=== PATIENT | male | born 1965 | race Caucasian/White ===

== ENCOUNTER 2016-11-30 20:07 | Emergency (ER) | payer OTHER ==
[2016-11-30] MEDS ORDERED: metroNIDAZOLE TAB* 250 MG PO ONE ×2 (21:26)
[2016-11-30] MEDS ORDERED: Ciprofloxacin TAB* 500 MG PO ONE ×2 (21:27)
[2016-11-30] MEDS ORDERED: Ondansetron ODT TAB* 4 MG PO ONE (21:31)
--- NOTE | 2016-11-30 21:32 | UC ---
Abdominal Pain Male HPI - HPI Summary HPI Summary: ONSET OF SHARP LLQ ABDOMINAL PAIN YESTERDAY EVENING. NO RADIATION. FEELS BLOATED. HAD CHILLS. NOTED TO HAVE FEVER HERE TODAY. DENIES NAUSEA. HAD NORMAL BM YESTERDAY. NONE TODAY. - History of Current Complaint Chief Complaint: UCGI Stated Complaint: ABDOMINAL PAIN Time Seen by Provider: 11/30/16 20:53 Hx Obtained From: Patient, Family/Package Delivery Driver - Onset/Duration: Sudden Onset, Lasting Days - 1 DAY, Still Present Timing: Constant Severity Initially: Moderate Severity Currently: Moderate Pain Intensity: 7 Pain Scale Used: 0-10 Numeric Location: Discrete At: LLQ Radiates: No Character: Sharp Aggravating Factor(s):: Movement Alleviating Factor(s): Nothing Associated Signs And Symptoms: Negative: Fever, Back Pain, Constipation, Blood in Stool, Urinary Symptoms, Decreased Appetite, Nausea, Vomiting, Diarrhea - Allergies/Home Medications Allergies/Adverse Reactions: Allergies Allergy/AdvReac Type Severity Reaction Status Date / Time No Known Allergies Allergy Verified 11/30/16 21:36 Home Medications: Home Medications Latanoprost 0.005% OPTH (NF) [Xalatan 0.005% OPTH*] 11/30/16 [History] Lisinopril TAB* [Prinivil TAB 5 MG*] 11/30/16 [History] Terazosin CAP* [Hytrin CAP*] 11/30/16 [History Confirmed 11/30/16] amLODIPine TAB* [Norvasc 5 mg TAB*] 11/30/16 [History] PMH/Surg Hx/FS Hx/Imm Hx - Additional Past Medical History Additional PMH: GLAUCOMA Endocrine History Of: Denies: Diabetes Cardiovascular History Of: Reports: Hypertension Denies: Pacemaker/ICD GI/ History Of: Denies: Renal Disease - Surgical History Surgical History: Yes Surgery Procedure, Year, and Place: [facility]NEE - [place]. PRK - (LIKE LASIX SURG) EYES - NO IMPLANTS - Family History Known Family History: Positive: Hypertension - Social History Alcohol Use: None Substance Use Type: None Smoking Status (MU): Never Smoked Tobacco Review of Systems Constitutional: Fever, Chills Respiratory: Negative Cardiovascular: Negative Gastrointestinal: Abdominal Pain Genitourinary: Negative All Other Systems Reviewed And Are Negative: Yes Physical Exam Triage Information Reviewed: Yes Appearance: Well-Appearing, Well-Nourished, Pain Distress - MODERATE Vital Signs: Initial Vital Signs Temp 101.2 F 11/30/16 20:29 Pulse 97 11/30/16 20:29 Resp 18 11/30/16 20:29 BP 153/75 11/30/16 20:29 Pulse Ox 95 11/30/16 20:29 Vital Signs Reviewed: Yes Eyes: Positive: Conjunctiva Clear ENT: Positive: Hearing grossly normal Neck: Positive: Supple, Nontender, No Lymphadenopathy Respiratory Exam: Normal Cardiovascular Exam: Normal Abdomen Description: Positive: Soft, Distended - MILDLY, Other: - TTP LLQ. NO REBOUND, NO RIGIDITY. Negative: CVA Tenderness (R), CVA Tenderness (L), Guarding Bowel Sounds: Positive: Present Musculoskeletal: Positive: No Edema Neurological: Positive: Alert Psychological: Positive: Age Appropriate Behavior Skin: Negative: rashes Abd Pain Male Course/Dx - Course Course Of Treatment: DISCUSSED WITH PT GOING TO ER SO STAT LABS AND IMAGING CAN BE DONE. PT WISHES TO TREAT OUTPT WITH THE UNDERSTANDING THAT DIAGNOSIS IS NOT CONFIRMED. HE WILL FOLLOW-UP WITH HIS PCP IN SEVERAL DAYS AND GO TO THE ER WITHOUT FAIL IF HE IS NOT IMPROVING OVER THE NEXT 24-48 HRS. - Differential Dx/Clinical Impression Differential Diagnosis/HQI/PQRI: Bowel Obstruction, Constipation, Ischemic Bowel Provider Diagnoses: DIVERTICULITIS - CLINICAL DIAGNOSIS Discharge - Discharge Plan Condition: Stable Disposition: HOME Prescriptions: Ciprofloxacin TAB* [Cipro 500 MG TAB*] 500 mg PO BID #18 tab Metronidazole [Flagyl 500 MG TAB] 500 mg PO Q8H #28 tab Ondansetron ODT TAB* [Zofran Odt TAB*] 4 mg PO Q6H PRN #20 tab.odt PRN Reason: Nausea/Vomiting Patient Education Materials: Diverticulitis (ED) Additional Instructions: CLINICALLY YOU HAVE DIVERTICULITIS. WE WILL TREAT YOU SUCH WITH CIPRO AND METRONIDAZOLE. UNDERSTAND THAT IDEALLY WE WOULD HAVE DONE A CT SCAN WITH CONTRAST TO DEFINITIVELY DIAGNOSE YOUR CONDITION BUT WE DO NOT HAVE THAT CAPABILITY IN THIS CLINIC. IF YOUR SYMPTOMS DO NOT IMPROVE OVER THE NEXT 24-48 HOURS ON ANTIBIOTICS GO TO THE ER WITHOUT FAIL FOR FURTHER EVALUATION. CBC DRAWN TODAY. FOLLOW-UP WITH YOUR PCP AT THE [facility] IN 3-5 DAYS FOR RE-CHECK. YOUR BP IS LIKELY ELEVATED DUE TO YOUR ACUTE CONDITION.
[2016-11-30 21:59] VITALS: BP 134/85
[2016-12-01 10:18] LABS: Hematocrit 44 % (42-52); Hemoglobin 14.8 g/dl (14.0-18.0); Mean Corpuscular HGB Conc 34 g/dl (31-36); Mean Corpuscular Hemoglobin 30 pg (27-31); Mean Corpuscular Volume 87 fL (80-94); Mean Platelet Volume 10 um3 (7.4-10.4); Red Blood Count 5.03 10^6/ul (4.0-5.4); Red Cell Distribution Width 14 % (10.5-15); White Blood Count 16.3 10^3/ul (3.5-10.8)
[2016-12-01 10:21] LABS: Add Diff/Slide Review? Slide Review Added; Comments Flag Yes
== END 2016-11-30 22:00 | disposition home or self-care (01) ==
LOC: UCEAST 20:07
DX: K57.92 Diverticulitis of intestine, part unspecified, without perforation or abscess without bleeding (principal); I10 Essential (primary) hypertension
CPT/HCPCS: 36415; 85025; 99213; A9270-GY; G0463

== ENCOUNTER 2016-12-01 20:40 | Emergency (ER) | payer OTHER ==
[2016-12-01 22:42] LABS: Hematocrit 39 % (42-52); Hemoglobin 13.3 g/dl (14.0-18.0); Mean Corpuscular HGB Conc 34 g/dl (31-36); Mean Corpuscular Hemoglobin 29 pg (27-31); Mean Corpuscular Volume 87 fL (80-94); Mean Platelet Volume 10 um3 (7.4-10.4); Red Blood Count 4.53 10^6/ul (4.0-5.4); Red Cell Distribution Width 13 % (10.5-15); White Blood Count 11.8 10^3/ul (3.5-10.8)
[2016-12-01 22:49] LABS: Urine Bacteria Absent (Absent); Urine Bilirubin Negative (Negative); Urine Glucose Negative (Negative); Urine Nitrite Negative (Negative)
--- NOTE | 2016-12-01 22:51 | ED ---
Candi Pantoja Claudia, scribed for Joe Mark MD on 12/01/16 at 2124 . Abdominal Pain/Male - HPI Summary HPI Summary: 50 year old male presents to the ED with LLQ pain. Pt went to [facility] last night with LLQ, fever and chills. Pt notes gradual onset of Sx a few days ago. Pt notes pain last night to be 9/`0. Pt states that at [facility] they suspected diverticulitis due to elevated WBC and fever but were unable to Dx due to lack of CT available. Pt comes to ED tonight to determine if it is in fact diverticulitis with the use of CT abd/pelvis. He notes that the pain is now 3/ 10 and is much less than it was yesterday but he does not that the pain was fairly constant today. He also notes chills today with possible fever. - History of Current Complaint Chief Complaint: EDAbdPain Stated Complaint: SENT FROM [facility]NEEDS [facility]SCAN Time Seen by Provider: 12/01/16 21:14 Hx Obtained From: Patient Onset/Duration: Gradual Onset, Lasting Days, Still Present Timing: Constant Pain Intensity: 2 Pain Scale Used: 0-10 Numeric Location: Discrete At: LLQ Radiates: No Character: Sharp Aggravating Factor(s): Nothing Alleviating Factor(s): Nothing Associated Signs And Symptoms: Positive: Fever. Negative: Constipation, Blood in Stool, Urinary Symptoms, Vomiting, Diarrhea - Allergies/Home Medications Allergies/Adverse Reactions: Allergies Allergy/AdvReac Type Severity Reaction Status Date / Time No Known Allergies Allergy Verified 11/30/16 21:36 PMH/Surg Hx/FS Hx/Imm Hx Previously Healthy: Yes Endocrine/Hematology History: Denies: Hx Diabetes Cardiovascular History: Reports: Hx Hypertension Denies: Hx Pacemaker/ICD, Other Cardiovascular Problems/Disorders Respiratory History: Denies: Other Respiratory Problems/Disorders History: Denies: Hx Renal Disease Sensory History: Denies: Hx Hearing Aid Psychiatric History: Denies: Hx Panic Disorder - Surgical History Surgery Procedure, Year, and Place: Lt KNEE - [place]. PRK - (LIKE LASIX SURG) EYES - NO IMPLANTS Infectious Disease History: No Infectious Disease History: Denies: Traveled Outside the [place] in Last 30 Days - Family History Known Family History: Positive: Hypertension - Social History Occupation: Employed Full-time Lives: With Family Alcohol Use: None Substance Use Type: Reports: None Smoking Status (MU): Never Smoked Tobacco Review of Systems Positive: Chills Eyes: Negative ENT: Negative Cardiovascular: Negative Respiratory: Negative Positive: Abdominal Pain Genitourinary: Negative Negative: dysuria, frequency Musculoskeletal: Negative Skin: Negative Neurological: Negative Psychological: Normal All Other Systems Reviewed And Are Negative: Yes Physical Exam Triage Information Reviewed: Yes Vital Signs On Initial Exam: Initial Vitals Temp Pulse Resp BP Pulse Ox 98.8 F 90 16 133/76 96 12/01/16 20:40 12/01/16 20:40 12/01/16 20:40 12/01/16 20:40 12/01/16 20:40 Vital Signs Reviewed: Yes Appearance: Positive: Well-Appearing, No Pain Distress Skin: Positive: Warm, Skin Color Reflects Adequate Perfusion, Dry Head/Face: Positive: Normal Head/Face Inspection Eyes: Positive: Normal ENT: Positive: Normal ENT inspection Neck: Positive: Supple, Nontender Respiratory/Lung Sounds: Positive: Clear to Auscultation, Breath Sounds Present Cardiovascular: Positive: RRR Abdomen Description: Positive: Soft. Negative: Nontender - Tender at LLQ Bowel Sounds: Positive: Present Musculoskeletal: Positive: Normal Neurological: Positive: Normal Psychiatric: Positive: Affect/Mood Appropriate Diagnostics - Vital Signs Vital Signs Temp Pulse Resp BP Pulse Ox 12/01/16 20:40 98.8 F 90 16 133/76 96 - Laboratory Lab Results: Lab Results 12/01/16 Range/Units 22:20 WBC 11.8 H (3.5-10.8) 10^3/ul RBC 4.53 (4.0-5.4) 10^6/ul Hgb 13.3 L (14.0-18.0) g/dl Hct 39 L (42-52) % MCV 87 (80-94) fL MCH 29 (27-31) pg MCHC 34 (31-36) g/dl RDW 13 (10.5-15) % Plt Count 219 (150-450) 10^3/ul MPV 10 (7.4-10.4) um3 Neut % (Auto) 68.4 (38-83) % Lymph % (Auto) 20.0 L (25-47) % [place] % (Auto) 10.2 H (1-9) % Eos % (Auto) 0.7 (0-6) % Baso % (Auto) 0.7 (0-2) % Absolute Neuts (auto) 8.1 H (1.5-7.7) 10^3/ul Absolute Lymphs (auto) 2.4 (1.0-4.8) 10^3/ul Absolute Monos (auto) 1.2 H (0-0.8) 10^3/ul Absolute Eos (auto) 0.1 (0-0.6) 10^3/ul Absolute Basos (auto) 0.1 (0-0.2) 10^3/ul Absolute Nucleated RBC 0 10^3/ul Nucleated RBC % 0 Result Diagrams: 12/01/16 22:20 Lab Statement: Any lab studies that have been ordered have been reviewed, and results considered in the medical decision making process. Abdominal Pain Fem Course/Dx - Course Course Of Treatment: Although right at this minute he is feeling a bit better, Mr. Gates had a fever last night and chills today therefore a CT scan was ordered to confirm the diagnosis of diverticulitis and to R/O abscess. - Diagnoses Provider Diagnoses: Diverticulitis - Provider Notifications Discussed Care Of Patient With: Dr. Pino at change of shift. Discharge - Discharge Plan Condition: Stable Disposition: HOME Discharge Disposition Comment: Sign-out to Dr. Pino at 2300- waiting for results of CT abd/pelvis Referrals: Twan Hendrix MD [Primary Care Provider] - 3 Days The documentation as recorded by the Candi pradhan Claudia accurately reflects the service I personally performed and the decisions made by me, Joe Mark MD.
[2016-12-01 22:54] LABS: BUN/Creatinine Ratio 13.3 (8-20); C Reactive Protein 122.68 mg/L (< 5.00); Calcium 8.8 mg/dL (8.6-10.3); EGFR African American 87.6 (>60); EGFR Non-African American 68.1 (>60); Globulin 3.1 g/dL (2-4); Potassium 3.8 mmol/L (3.5-5.0); Total Bilirubin 0.9 mg/dL (0.2-1.0); Total Protein 7.1 g/dL (6.4-8.9)
[2016-12-01] MEDS ORDERED: Iohexol 300* (CONTRAST) 10 ML SDV IV ONE (23:04)
[2016-12-02 00:25] VITALS: BP 136/78
--- NOTE | 2016-12-02 07:42 | RAD ---
INDICATION: Left lower quadrant abdominal pain. COMPARISON: There are no prior studies available for comparison. TECHNIQUE: A CT scan of the abdomen and pelvis was performed with intravenous and oral contrast following intravenous injection of 140 ml of Omnipaque 300 nonionic contrast. Contiguous axial sections were obtained from the lung bases through the symphysis pubis. Images were reconstructed in the coronal and sagittal planes. FINDINGS: The lung bases are clear. No pleural effusion is present. The liver and spleen are normal in size without significant focal abnormality. The liver is decreased in attenuation consistent with fatty infiltration. There appear to be several small accessory spleens present. No calcified gallstones are seen. The pancreas appears to be within normal limits. The kidneys and adrenal glands are normal in size. No hydronephrosis is seen. No significant focal renal abnormality is seen. The aorta is normal in caliber and demonstrates homogeneous contrast opacification. No significant enlarged retroperitoneal lymph nodes are seen. The stomach, small and large bowel appear nondistended. The appendix is within normal limits. There is thickening of the wall of the proximal sigmoid colon. There appears to be an inflamed diverticulum in that region and stranding in the surrounding mesenteric fat most consistent with diverticulitis. No abscess is seen. No free intraperitoneal air or fluid is seen. There is mild grade 1 retrolisthesis of L5 relative to S1. No fracture is seen. No other focal osseous abnormalities are noted. IMPRESSION: 1. FINDINGS MOST CONSISTENT WITH DIVERTICULITIS, NO EVIDENCE FOR ABSCESS. 2. HEPATIC STEATOSIS.
== END 2016-12-02 00:23 | disposition home or self-care (01) ==
LOC: ED 20:40
DX: K57.92 Diverticulitis of intestine, part unspecified, without perforation or abscess without bleeding (principal); R10.32 Left lower quadrant pain; R50.9 Fever, unspecified
CPT/HCPCS: 36415; 74177; 80053; 81003; 81015; 83690; 85025; 86140; 87086; 99282; Q9967

== ENCOUNTER 2017-02-11 11:44 | Emergency (ER) | payer OTHER ==
[2017-02-11 11:52] VITALS: BP 125/79
--- NOTE | 2017-02-11 13:01 | UC ---
Abdominal Pain Male HPI - History of Current Complaint Chief Complaint: UCAbdominalPain Stated Complaint: LT ABD/FLANK PAIN/DIVERTICULITIS? Hx Obtained From: Patient Onset/Duration: Gradual Onset - over past 2 days he has experienced escalating LLQ abd pain Timing: Constant Severity Initially: Mild Severity Currently: Moderate Location: Discrete At: LLQ Radiates: No Character: Cramping, Sharp Aggravating Factor(s):: Movement Alleviating Factor(s): Nothing Associated Signs And Symptoms: Negative: Fever, Chest Pain, Blood in Stool, Vomiting, Diarrhea Similar Episode/Dx As:: diverticulitis - Allergies/Home Medications Allergies/Adverse Reactions: Allergies Allergy/AdvReac Type Severity Reaction Status Date / Time No Known Allergies Allergy Verified 11/30/16 21:36 Home Medications: Home Medications Pravastatin (NF) [Pravachol (NF)] 10 mg PO 1700 02/11/17 [History Confirmed ] PMH/Surg Hx/FS Hx/Imm Hx Previously Healthy: Yes Endocrine History: Dyslipidemia Cardiovascular History: Hypertension GI/ History: Diverticulitis - Surgical History Surgical History: Yes Surgery Procedure, Year, and Place: [facility]EE - [place]. PRK - (LIKE LASIX SURG) EYES - NO IMPLANTS - Family History Known Family History: Positive: Hypertension - Social History Occupation: Employed Full-time Lives: With Family Alcohol Use: Occasionally Substance Use Type: None Smoking Status (MU): Never Smoked Tobacco Review of Systems Constitutional: Negative Respiratory: Negative Cardiovascular: Negative Gastrointestinal: Abdominal Pain Genitourinary: Negative Musculoskeletal: Negative Neurological: Negative Psychological: Negative All Other Systems Reviewed And Are Negative: Yes Physical Exam Triage Information Reviewed: Yes Appearance: Well-Appearing, No Pain Distress, Well-Nourished Vital Signs: Initial Vital Signs Temp 98.0 F 02/11/17 11:49 Pulse 78 02/11/17 11:49 Resp 18 02/11/17 11:49 BP 125/79 02/11/17 11:49 Pulse Ox 99 02/11/17 11:49 Vital Signs Reviewed: Yes Respiratory Exam: Normal Cardiovascular Exam: Normal Abdomen Description: Positive: Other: - pain with deep palpation LLQ. Negative : Distended, Guarding Bowel Sounds: Positive: Present Psychological Exam: Normal Skin Exam: Normal Abd Pain Male Course/Dx - Differential Dx/Clinical Impression Differential Diagnosis/HQI/PQRI: Bowel Obstruction, Constipation, Diverticulitis , Ureteral Stone Provider Diagnoses: diverticulitis Discharge - Discharge Plan Condition: Stable Disposition: HOME Prescriptions: Ciprofloxacin HCl [Cipro 500 MG TAB] 500 mg PO BID #20 tab Metronidazole [Flagyl 500 MG TAB] 500 mg PO TID #30 tab Patient Education Materials: Diverticulitis (ED) Referrals: Twan Hendrix MD [Primary Care Provider] - 3 Days (for recheck) Additional Instructions: drink plenty of fluids increase fiber in diet report to ER if your symptoms worsen at any time
== END 2017-02-11 13:15 | disposition home or self-care (01) ==
LOC: UCEAST 11:44
DX: K57.92 Diverticulitis of intestine, part unspecified, without perforation or abscess without bleeding (principal)
CPT/HCPCS: 99212; G0463

== ENCOUNTER 2019-12-16 12:45 | Inpatient (IN) | payer OTHER ==
[2019-12-16] MEDS ORDERED: NS 0.9% 1000 ML** 1,000 ML IV ONE (13:23)
--- NOTE | 2019-12-16 13:24 | ED ---
Abdominal Pain/Male - HPI Summary HPI Summary: Pt. is a 54 y.o male who presents to the ER for ongoing abdominal pain x 8 days. Pt. notes a hx of recurrent diverticulitis. Pt. states he was started on cipro and flagyl 8 days ago for diverticulitis. Pt. states his LLQ abd. pain has been increasing. He noticed today nausea and increased lower abd. cramping. Also notes low grade. Denies chest pain, SOB, cough, urinary sxs. Past hx of HTN , HLD. Sxs are moderate in severity. No current modifying factors. - History of Current Complaint Chief Complaint: EDAbdPain Stated Complaint: POSS DIVERTICULITIS PER PT Time Seen by Provider: 12/16/19 12:58 Hx Obtained From: Patient Pain Intensity: 2 - Allergies/Home Medications Allergies/Adverse Reactions: Allergies Allergy/AdvReac Type Severity Reaction Status Date / Time No Known Allergies Allergy Verified 12/16/19 12:46 Home Medications: Home Medications Latanoprost 0.005% OPTH (NF) [Xalatan 0.005% OPTH*] 1 drop BOTH EYES DAILY 11/30 [History Confirmed 12/16/19] Lisinopril TAB* [Prinivil TAB 5 MG*] 10 mg PO DAILY 11/30/16 [History Confirmed 12/16/19] Terazosin CAP* [Hytrin CAP*] 10 mg PO BEDTIME 11/30/16 [History Confirmed ] Ciprofloxacin HCl [Cipro 500 MG TAB] 500 mg PO BID #20 tab 02/11/17 [Rx Confirmed 12/16/19] Pravastatin (NF) [Pravachol (NF)] 10 mg PO BEDTIME 02/11/17 [History Confirmed 12/16/19] Acetaminophen TAB* [Tylenol TAB*] 325 mg PO Q4H PRN 12/16/19 [History Confirmed 12/16/19] Aspirin EC TAB* [Ecotrin EC Low Dose 81 MG*] 81 mg PO DAILY 12/16/19 [History Confirmed 12/16/19] metroNIDAZOLE [Flagyl 500 MG TAB] 500 mg PO QID 12/16/19 [History Confirmed ] PMH/Surg Hx/FS Hx/Imm Hx Previously Healthy: Yes Endocrine/Hematology History: Denies: Hx Diabetes Cardiovascular History: Reports: Hx Hypertension Denies: Hx Pacemaker/ICD, Other Cardiovascular Problems/Disorders Respiratory History: Denies: Other Respiratory Problems/Disorders History: Denies: Hx Dialysis, Hx Renal Disease Sensory History: Denies: Hx Hearing Aid Psychiatric History: Denies: Hx Panic Disorder - Surgical History Surgery Procedure, Year, and Place: [facility]NEE - [place]. PRK - (LIKE LASIX SURG) EYES - NO IMPLANTS Infectious Disease History: No Infectious Disease History: Denies: Traveled Outside the [place] in Last 30 Days - Family History Known Family History: Positive: Hypertension, Non-Contributory - Social History Occupation: Employed Full-time Lives: With Family Alcohol Use: Occasionally Substance Use Type: Reports: None Smoking Status (MU): Never Smoked Tobacco Review of Systems Positive: Fever, Chills Cardiovascular: Negative Negative: Palpitations, Chest Pain Respiratory: Negative Negative: Shortness Of Breath, Cough Positive: Abdominal Pain, Nausea Genitourinary: Negative All Other Systems Reviewed And Are Negative: Yes Physical Exam Triage Information Reviewed: Yes Vital Signs On Initial Exam: Initial Vitals Temp Pulse Resp BP Pulse Ox 100 F 85 16 146/104 96 12/16/19 12:46 12/16/19 12:46 12/16/19 12:46 12/16/19 12:46 12/16/19 12:46 Vital Signs Reviewed: Yes Appearance: Positive: Well-Appearing - Pt. lying in bed in NAD. Skin: Positive: Warm, Dry Procedures - Sedation Patient Received Moderate/Deep Sedation with Procedure: No Diagnostics - Vital Signs Vital Signs Temp Pulse Resp BP Pulse Ox 12/16/19 12:46 100 F 85 16 146/104 96 - Laboratory Result Diagrams: 12/17/19 05:26 12/17/19 05:26 Lab Statement: Any lab studies that have been ordered have been reviewed, and results considered in the medical decision making process. Abdominal Pain Male Course/Dx - Course Course Of Treatment: Pt. with increasing LLQ pain after 8 days of cipro and flagyl. Low grade fever. Declines pain medications. Given IV fluids. Labs show mild increase in WBC and CRP. CT per radiology: IMPRESSION: 1. UNCOMPLICATED DIVERTICULITIS OF THE DISTAL DESCENDING COLON. RECOMMEND CORRELATION. Case discussed with Dr. Shah who recommends admission for failed outpt. treatment. Zosyn given. Case discussed with Dr. Kramer, hospitalist, who will see pt. for admission. - Diagnoses Provider Diagnoses: Diverticulitis, Failure of outpatient treatment - Critical Care Time Critical Care Statement: Critical care time is provided exclusive of any time spent performing procedures. Discharge ED - Sign-Out/Discharge Documenting (check all that apply): Patient Departure - Discharge Plan Condition: Stable Disposition: ADMITTED TO [facility] - Billing Disposition and Condition Condition: STABLE Disposition: Admitted to [facility] - Attestation Statements Provider Attestation: I have seen the patient with the LEANNE and agree with the plan and documentation below except as noted: briefly 54-year-old male presenting with diverticulitis, failing outpatient therapy. Admit for IV antibiotics Hyacinth Shah MD
[2019-12-16 13:49] LABS: ABS Eosinophils 0.1 10^3/ul (0-0.6); ABS Lymphocytes 1.6 10^3/ul (1.0-4.8); ABS Monocytes 1.1 10^3/ul (0-0.8); ABS Neutrophils 8.1 10^3/ul (1.5-7.7); Hematocrit 42 % (42-52); Hemoglobin 14.8 g/dL (14.0-18.0); Lymphocyte % 14.7 %; Mean Corpuscular HGB Conc 35 g/dL (31-36); Mean Corpuscular Hemoglobin 31 pg (27-31); Mean Corpuscular Volume 89 fL (80-94); Mean Platelet Volume 9.6 fL (7.4-10.4); Platelet Count 245 10^3/uL (150-450); Red Blood Count 4.78 10^6 /uL (4.18-5.48); Red Cell Distribution Width 13 % (10-15)
[2019-12-16 14:05] LABS: Albumin 3.9 g/dL (3.2-5.2); Albumin/Globulin Ratio 1.2 (1-3); BUN/Creatinine Ratio 15.5 (8-20); C Reactive Protein 17.43 mg/L (<8.01); Calcium 9.1 mg/dL (8.6-10.3); EGFR African American 90.4 (>60); EGFR Non-African American 74.7 (>60); Globulin 3.2 g/dL (2-4); Total Bilirubin 0.5 mg/dL (0.2-1.0); Total Protein 7.1 g/dL (6.4-8.9)
[2019-12-16] MEDS ORDERED: Iohexol 300* (CONTRAST) 10 ML SDV IV ONE (14:29)
[2019-12-16] MEDS ORDERED: Acetaminophen TAB* 325 MG PO ONE (14:39)
[2019-12-16] MEDS: Piperacillin/Tazobac ADVAN(*) 3.375 GM in NS 0.9% 100 ML* 100 ML IVPB ONE (17:10)
[2019-12-16] MEDS ORDERED: Morphine INJ* 2 MG/ML 1 ML SYRINGE (TWO MG - NEW SYRINGE VERSION) IV PRN (18:07)
[2019-12-16] MEDS ORDERED: Zosyn per Pharmacy* NOTE FOLLOW UP SCH (19:00)
[2019-12-16 19:02] LABS: Urine Appearance Clear; Urine Bilirubin Negative (Negative); Urine Blood Negative (Negative); Urine Color Straw; Urine Glucose Negative (Negative); Urine Ketones Negative (Negative); Urine Nitrite Negative (Negative); Urine Protein Negative (Negative); Urine Specific Gravity 1.032 (1.010-1.030); Urine Urobilinogen Negative (Negative)
--- NOTE | 2019-12-16 19:48 | HP ---
CC: Dr. Hendrix* HISTORY AND PHYSICAL: DATE OF ADMISSION: 12/16/19 PROVIDER: Eduardo Gregory NP PRIMARY CARE PROVIDER: Dr. Hendrix. ATTENDING PHYSICIAN WHILE IN THE HOSPITAL: Dr. Rivera* (dictated by Eduardo Gregory NP). CHIEF COMPLAINT: Abdominal pain. HISTORY OF PRESENT ILLNESS: Mr. Gates is a 54-year-old male with a past medical history significant for diverticulosis, hypertension, hyperlipidemia, glaucoma, fatty liver disease, who presented to the emergency room with complaints of abdominal pain. The patient reports that approximately 9 days ago , he started with abdominal pain, diarrhea. He called his primary care provider on 12/09/19 and he was started on Cipro and Flagyl. The patient reports that he has taken 8 days of Cipro and Flagyl. He resumed a bland diet a few days ago on afternoon. His stools had improved. He was feeling better. Monday night, he developed nausea with associated lower abdominal pain , feeling like gas, but nothing would expel. The pain persisted. He also reports that he had fevers and chills. Due to these findings, he called his PCP today who recommend he come to the emergency room for further evaluation and a CAT scan of his abdomen. The patient denies any edema or chest pain. No cough, hemoptysis, or shortness of breath. He does report some nausea. He does report intermittent diarrhea and constipation. He does report left lower quadrant abdominal pain. He denies any gross hematuria, dysuria, focal weakness , sensory loss, visual complaints, dysphagia, arthralgias, myalgias, rashes, lesions, open sores, psychosis, or anxiety. While in the emergency room, he had routine lab work drawn. He was found to have a white count of 11.0. His CT of the abdomen and pelvis showed uncomplicated diverticulitis. Due to these findings, Hospital Medicine was asked to see and evaluate him for admission. PAST MEDICAL HISTORY: Significant for diverticulosis with episodic diverticulitis, hypertension, hyperlipidemia, glaucoma, fatty liver disease. PAST SURGICAL HISTORY: Right patella surgery, benign cyst removed from his back. HOME MEDICATIONS: Include: 1. Lisinopril 10 mg p.o. daily. 2. Latanoprost 0.005% one drop to both eyes daily. 3. Pravastatin 10 mg p.o. at bedtime. 4. Aspirin 81 mg p.o. daily. 5. Terazosin 10 mg at bedtime. 6. Lisinopril 10 mg p.o. daily. 7. He is also taking Flagyl 500 mg p.o. 4 times a day. 8. Cipro 500 mg p.o. b.i.d. ALLERGIES: No known drug allergies. FAMILY HISTORY: Paternal grandfather from a heart attack in the 60s. Maternal grandfather with a stroke. Sister with diabetes and another sister had cancer. Mother from gallbladder cancer. SOCIAL HISTORY: No tobacco use. Reports rare alcohol use. No illicit drug use. He is . He lives with his . Surrogate decision maker in the event he is unable to make his own decisions is his . He is a full code. REVIEW OF SYSTEMS: A 14-point review of systems was completed. All pertinent positives were mentioned in the HPI. PHYSICAL EXAMINATION GENERAL: At this time, Mr. Gates is a 54-year-old male. He is alert and oriented, resting on the stretcher in the emergency room. He is in no acute distress. VITAL SIGNS: Blood pressure 146/104, heart rate 85, respirations 16, O2 saturation 96%, temperature was 100.0. HEENT: Head is atraumatic, normocephalic. Eyes: EOMs are intact. Sclerae anicteric and not pale. Oral mucosa is moist. NECK: Supple. LUNGS: Clear to auscultation bilaterally. No wheezes, rales, or rhonchi. CARDIAC: S1, S2. Regular rate and rhythm. No murmurs, rubs, or gallops. ABDOMEN: Obese, soft. He does have mild tenderness noted to his left lower quadrant. Bowel sounds are active x4. EXTREMITIES: He is able to move all 4 extremities. There is no clubbing or cyanosis. NEUROLOGIC: He is awake, alert, oriented x3. Speech is clear. Thought process is intact. SKIN: Intact. DIAGNOSTIC STUDIES/LAB DATA: WBCs are 11.0, RBCs 4.78, hemoglobin 14.8, hematocrit is 42, platelet count is 245. Sodium 135, potassium 4.0, chloride 103, carbon dioxide is 25, anion gap is 7, BUN was 16, creatinine 1.03, glucose was 92, lactic acid 1.1, calcium 9.1. Total bilirubin 0.50, ASTs were 24, ALTs were 25, alkaline phosphatase was 44. C-reactive protein was 17.43, lipase was 16. Urine is currently pending. The patient had a CT of the abdomen and pelvis, radiologist's impression: Uncomplicated diverticulitis of the distal descending colon. ASSESSMENT AND PLAN: Mr. Gates is a 54-year-old male with a past medical history significant for diverticulosis, history of diverticulitis, hypertension , hyperlipidemia, glaucoma, fatty liver, who presented to the emergency room with a complaints of abdominal pain and diverticulitis with failed outpatient oral antibiotics. He will be admitted for: 1. Acute diverticulitis. The patient started with abdominal pain approximately 8 days ago. He was started on Cipro and Flagyl. He has taken 8 days course of antibiotics. Continues with fever and left lower quadrant abdominal pain. At this time, the patient appears to have failed outpatient oral antibiotics. He will admitted to inpatient and treated with Zosyn. I will place him on a clear liquid diet. He will have IV fluids and pain medication as needed. 2. Hypertension. He can continue on his lisinopril with holding for systolic blood pressure less than 110. Continue his pravastatin 10 mg p.o. daily. 3. Hyperlipidemia. He will continue pravastatin. 4. Glaucoma. He will continue latanoprost. 5. FEN: Clear liquid diet. 6. Code status: He is a full code. 7. DVT prophylaxis: I will place him on Lovenox subcu. TIME SPENT: Time spent on this admission was 60 minutes, greater than half that time was spent at the bedside reviewing events leading thus far to this hospitalization, performing physical exam, and reviewing my plan of care. I have discussed this with my attending, Dr. Rivera; she is in agreement with my plan. EDUARDO GREGORY, ROCIO [id number]/[facility] #: [id number] MICHAEL
[2019-12-16] MEDS ORDERED: Enoxaparin(*) 40 MG/0.4 ML SYR SUBCUT SCH (20:00)
[2019-12-16] MEDS: NS 0.9% 1000 ML** 1,000 ML IV SCH (21:03)
[2019-12-16] MEDS: ZOSYN 3.375 GM Q8H per EXTENDED INFUSION IVPB SCH ×2 (21:09)
[2019-12-17] MEDS ORDERED: PROCHLORPERAZINE INJ 5 MG/ML 2 ML VIAL IV PRN (01:32)
[2019-12-17] MEDS ORDERED: Ketorolac INJ* 30 MG/ML 1 ML VIAL IV PUSH PRN (01:33)
[2019-12-17] MEDS: ZOSYN 3.375 GM Q8H per EXTENDED INFUSION IVPB SCH ×4 (04:41→12:48)
[2019-12-17] MEDS: NS 0.9% 1000 ML** 1,000 ML IV SCH ×2 (04:44→12:48)
[2019-12-17 05:55] LABS: ABS Eosinophils 0.1 10^3/ul (0-0.6); ABS Lymphocytes 1.8 10^3/ul (1.0-4.8); ABS Monocytes 0.9 10^3/ul (0-0.8); ABS Neutrophils 5.2 10^3/ul (1.5-7.7); Eosinophil % 1.8 %; Hematocrit 40 % (42-52); Hemoglobin 13.7 g/dL (14.0-18.0); Lymphocyte % 22.1 %; Mean Corpuscular HGB Conc 35 g/dL (31-36); Mean Corpuscular Hemoglobin 31 pg (27-31); Mean Corpuscular Volume 89 fL (80-94); Mean Platelet Volume 9.4 fL (7.4-10.4); Platelet Count 232 10^3/uL (150-450); Red Blood Count 4.43 10^6 /uL (4.18-5.48); Red Cell Distribution Width 13 % (10-15); White Blood Count 8.1 10^3/uL (3.5-10.8)
[2019-12-17 06:11] LABS: BUN/Creatinine Ratio 10.3 (8-20); Calcium 8.7 mg/dL (8.6-10.3); EGFR African American 86.5 (>60); EGFR Non-African American 71.5 (>60); Potassium 3.8 mmol/L (3.5-5.0)
[2019-12-17] MEDS ORDERED: LORazepam TAB(*) 0.5 MG PO PRN (06:19)
[2019-12-17 15:52] VITALS: BP 145/81
--- NOTE | 2019-12-17 20:10 | DS ---
CC: Dr. Hendrix* DISCHARGE SUMMARY: DATE OF ADMISSION: 12/16/19 DATE OF DISCHARGE: 12/17/19 PROVIDER: Melia Bravo NP. PRIMARY CARE PROVIDER: Dr. Hendrix. ATTENDING WHILE IN THE HOSPITAL: Dr. Ring* (dictated by Melia Bravo NP). PRIMARY DIAGNOSIS: Diverticulitis STUDIES WHILE IN THE HOSPITAL: CT ABD/PELVIS W/CONTRAST: Uncomplicated diverticulitis of the distal descending colon. Recommend correlation with colonoscopy after symptomatic resolution. Hepatic steatosis HISTORY OF PRESENT ILLNESS AND HOSPITAL COURSE: Mr. Gates is a 54-year-old male with past medical history significant for diverticulosis, hypertension, hyperlipidemia, glaucoma, fatty liver disease who presented to the emergency department with complaints of abdominal pain which started 9 days ago. The patient had been on conservative treatment at home with oral antibiotics, Cipro and Flagyl. Upon arrival to the hospital the patient was on the 8th day of treatment with oral antibiotics with good relief initially. However on the fourth day of treatment he reports the pain returned with increasing severity daily. Mr. Gates was instructed to go to the hospital by his PCP. While in the ER, the patient's CT scan showed an uncomplicated diverticulitis of the distal descending colon and they recommended correlation with colonoscopy after symptomatic resolution and hepatic steatosis. The patient was admitted to the floor, received total of 4 doses of Zosyn 3.375 mg. After approx. 24 hours Mr. Gates reports that he is comfortable and not feeling any pain whatsoever, states he is ready for discharge home. The patient is stable for discharge. LAB WORK: White blood cell count started out 11.0, decreased to 8.1. CRP was only elevated to 17.3 and BMP labs were normal. Vital Signs: 98.1 for temperature, 61 for heart rate, 16 respirations, 97% on room air, blood pressure 145/81. PHYSICAL EXAM: Head is atraumatic, normocephalic. Eyes: EOMs intact. Sclerae anicteric, not pale. Oral mucosa is moist. Neck is supple. Lungs: Clear to auscultation bilaterally. No wheezes, rales, or rhonchi. Cardiac: S1 , S2 sounds. Regular rate and rhythm. No murmurs, rubs, or gallops. Abdomen is soft, nontender, nondistended. Bowel sounds are active x4 quadrants. The patient is able to move all extremities without impairment. There is no clubbing or cyanosis. The patient is alert and oriented x3. Speech is clear. Thought process intact. No focal deficits noted. Skin is intact. MEDICATIONS: Changed medications: 1. Cipro 500 mg p.o. b.i.d. is canceled. 2. Flagyl 500 mg 4 times a day. We will continue for another week. 3. Cefdinir 300 mg p.o. b.i.d. x14 days. Continued home medications: 1. Lisinopril 10 mg p.o. daily. 2. Latanoprost 0.005% one drop both eyes daily. 3. Pravastatin 10 mg p.o. at bedtime. 4. Aspirin 81 mg p.o. daily. 5. Terazosin 10 mg at bedtime. DISCHARGE PLAN: The patient is stable for discharge home. DIET: Will be bland diet, bananas applesauce, toast until followup with PCP, slowly add any foods outside this list with great caution as it may inflame your intestines again. ACTIVITY: As tolerated. Stop taking ciprofloxacin. Start taking Cefdinir 300 mg p.o. b.i.d. x14 days and continue Flagyl 500 mg 4 times daily for 7 days. Please return to the emergency department if you develop any severe pain that is unrelieved by Tylenol, if you see any blood in your stool or you are unable to move your bowels. Please return to the ER if you develop any nausea, vomiting, diarrhea or chest pain or shortness of breath or any other concerning symptoms. DISCHARGE CONDITION: Stable. DISCHARGE DISPOSITION: Home. MELIA BRAVO, ROC[place] [id number]/[facility] #: [id number] MICHAEL
== END 2019-12-17 17:10 | disposition home or self-care (01) | DRG 244 ==
LOC: ED 12:45 → SSU 18:00 → OBSVTOIN 18:30
PROVIDERS: ADMIT Hospitalist; ATTEND Internal Medicine
DX: K57.32 Diverticulitis of large intestine without perforation or abscess without bleeding (principal); K76.0 Fatty (change of) liver, not elsewhere classified; I10 Essential (primary) hypertension; E78.5 Hyperlipidemia, unspecified; H40.9 Unspecified glaucoma; Z79.82 Long term (current) use of aspirin; Z79.899 Other long term (current) drug therapy; Z82.49 Family history of ischemic heart disease and other diseases of the circulatory system; Z82.3 Family history of stroke; Z83.3 Family history of diabetes mellitus; Z80.0 Family history of malignant neoplasm of digestive organs
CPT/HCPCS: 36415; 74177; 80048; 80053; 81003; 83605; 83690; 85025; 86140; 96365; 99283; A9270-GY; J0780; J1650; J1885; J2543; Q9967

== ENCOUNTER 2021-03-17 10:59 | Inpatient (IN) ==
[2021-03-17] MEDS ORDERED: Heparin - STEMI 5,000 UNITS/ML 1 ml VIAL IV ONE (11:08)
[2021-03-17] MEDS ORDERED: Bivalirudin 250 MG VIAL ONE (11:11)
[2021-03-17] MEDS ORDERED: Heparin 2 UNITS/ML 1000 mls IV ONE (11:11)
[2021-03-17] MEDS ORDERED: HYDROmorphone 1 MG/1 ML SYRINGE ONE (11:11)
[2021-03-17] MEDS ORDERED: VERAPAMIL 2.5 MG/ML 2 ML VIAL ** 5 mg/2 ml ONE (11:11)
[2021-03-17] MEDS ORDERED: Midazolam 5 mg/5 ml VIAL 1 mg/ml 5 ml VIAL (5 mg) ONE (11:11)
[2021-03-17] MEDS ORDERED: Heparin 1,000 UNIT/ML 10 ml (10,000 UNITS) CATHLAB/DIALYSIS ONE (11:11)
[2021-03-17] MEDS ORDERED: Adenosine 3 MG/ML 2 ml VIAL (6 mg) ONE (11:11)
[2021-03-17] MEDS ORDERED: Iohexol 350 (CONTRAST) 100 ML PAK IV ONE (11:11)
[2021-03-17] MEDS ORDERED: diPHENhydraMINE IV 50 MG/ML 1 ml VIAL (BENADRYL) ONE (11:11)
[2021-03-17] MEDS ORDERED: Atropine 0.1 MG/ML 10 ml SYR (1 mg) ONE (11:11)
[2021-03-17] MEDS ORDERED: Lidocaine 1% VIAL 10 MG/ML VIAL ONE (11:11)
[2021-03-17] MEDS ORDERED: nitroGLYCERIN DRIP 100 MCG/ML 250 ML BTL ONE (11:11)
[2021-03-17] MEDS ORDERED: Heparin 2 UNITS/ML 1000 mls 3,000 ML IV ONE (11:13)
[2021-03-17] MEDS ORDERED: Iohexol 350 (CONTRAST) 200 ML MDV IV ONE (11:13)
[2021-03-17 11:19] LABS: ABS Eosinophils 0.1 10^3/ul (0-0.6); ABS Lymphocytes 2.6 10^3/ul (1.0-4.8); ABS Monocytes 0.6 10^3/ul (0-0.8); ABS Neutrophils 2.8 10^3/ul (1.5-7.7); Hematocrit 44 % (42-52); Hemoglobin 15.1 g/dL (14.0-18.0); Lymphocyte % 42.5 %; Mean Corpuscular HGB Conc 34 g/dL (31-36); Mean Corpuscular Hemoglobin 31 pg (27-31); Mean Corpuscular Volume 90 fL (80-94); Mean Platelet Volume 9.1 fL (7.4-10.4); Platelet Count 229 10^3/uL (150-450); Red Blood Count 4.89 10^6 /uL (4.18-5.48); Red Cell Distribution Width 13 % (10-15); White Blood Count 6.2 10^3/uL (3.5-10.8)
[2021-03-17] MEDS ORDERED: Ondansetron 4 mg VIAL 2 MG/ML 2 ml VIAL ONE (11:24)
[2021-03-17] MEDS ORDERED: Ondansetron 4 mg VIAL 2 MG/ML 2 ml VIAL IV ONE (11:27)
[2021-03-17 11:30] LABS: Activated Partial Thrombo Time 26.3 seconds (26.0-38.0); INR 1.07 (0.86-1.15)
[2021-03-17 11:38] LABS: Troponin I 0.01 ng/mL (<0.03)
[2021-03-17 11:50] LABS: Potassium 3.7 mmol/L (3.5-5.0)
[2021-03-17 11:51] LABS: Albumin 4.1 g/dL (3.2-5.2); Albumin/Globulin Ratio 1.5 (1-3); Calcium 9.4 mg/dL (8.6-10.3); EGFR African American 82.6 (>60); EGFR Non-African American 68.3 (>60); Globulin 2.7 g/dL (2-4); Total Bilirubin 0.6 mg/dL (0.2-1.0); Total Protein 6.8 g/dL (6.4-8.9)
[2021-03-17] MEDS ORDERED: NS 0.9% 1000 ml BAG 1,000 ML IV SCH (12:45)
[2021-03-17] MEDS ORDERED: Bivalirudin 250 MG in NS 0.9% 50 ML 50 ML IV SCH (13:00)
[2021-03-17 14:36] LABS: CKMB ng/mL 136.3 ng/mL (0.6-6.3)
[2021-03-17 14:37] LABS: Troponin I 17.34 ng/mL (<0.03)
[2021-03-17 19:14] LABS: CKMB ng/mL 189.6 ng/mL (0.6-6.3); Troponin I 57.75 ng/mL (<0.03)
[2021-03-18 01:51] LABS: CKMB ng/mL 116.2 ng/mL (0.6-6.3)
[2021-03-18 01:56] LABS: Troponin I 53.55 ng/mL (<0.03)
[2021-03-18 05:52] LABS: Calcium 8.8 mg/dL (8.6-10.3); EGFR African American 95.4 (>60); EGFR Non-African American 78.8 (>60); HDL Cholesterol 29.1 mg/dL; Magnesium 1.7 mg/dL (1.9-2.7); Phosphorus 3.5 mg/dL (2.5-5.0); Potassium 3.7 mmol/L (3.5-5.0)
[2021-03-18] MEDS ORDERED: Magnesium Sulfate IV 3 GM in NS 0.9% 100 ml BAG 100 ML IVPB ONE (08:00)
[2021-03-18 10:35] VITALS: BP 114/73
== END 2021-03-18 12:20 | disposition home or self-care (01) | DRG 247 ==
LOC: ED 10:59 → CHICATH 11:48 → ICU 13:10
PROVIDERS: ADMIT Internal Medicine Cardiovascular Disease; ATTEND Internal Medicine Cardiovascular Disease